=== PATIENT | female | born 1980 | race African-American/Black ===

== ENCOUNTER 2018-05-31 08:29 | Emergency (ER) | payer MEDICAID ==
[~2018-05-31] VITALS: Ht 170.2 cm; Wt 94.2 kg
[~2018-05-31 08:29] MED LIST: HYDR25TA6 PO; LISI5TAB7 PO
[2018-05-31 10:20] VITALS: BP 126/98
== END 2018-05-31 10:22 | disposition home or self-care (01) ==
LOC: ED 09:20
DX: J01.00 Acute maxillary sinusitis, unspecified (principal); R51 Headache; J30.2 Other seasonal allergic rhinitis; L03.211 Cellulitis of face; I10 Essential (primary) hypertension; J45.909 Unspecified asthma, uncomplicated; Z87.891 Personal history of nicotine dependence; Z88.8 Allergy status to other drugs, medicaments and biological substances
CPT/HCPCS: 99283

== ENCOUNTER 2018-10-24 08:59 | Emergency (ER) | payer MEDICAID ==
[~2018-10-24] VITALS: Ht 170.2 cm; Wt 89.0 kg
--- NOTE | 2018-10-24 09:33 | NUR ---
Pt to 11 from lobby
--- NOTE | 2018-10-24 09:45 | NUR ---
First contact with patient: Patient resting in gurney with family member at bedside, plan of care discussed with patient and questions answered. Ultrasound being performed at bedside at this time. Call bernard placed within reach with instruction for use.
--- NOTE | 2018-10-24 09:47 | NUR ---
Report to KAI Lindo.
[2018-10-24 10:28] LABS: BASOPHILS # (AUTO) 0.04 x10^3/uL (0-0.1); BASOPHILS % (AUTO) 1 % (0-1); EOSINOPHILS # (AUTO) 0.47 x10^3/uL (0-0.4); EOSINOPHILS % (AUTO) 11 % (1-7); LYMPHOCYTES # (AUTO) 1.95 x10^3/uL (1-3.4); LYMPHOCYTES % (AUTO) 46 % (22-44); MD NO; MEAN CORPUSCULAR HEMOGLOBIN 27.8 pg (27.0-34.8); MEAN CORPUSCULAR VOLUME 84.4 fL (80-100); MEAN PLATELET VOLUME 9.6 fL (7.4-10.4); MONOCYTES # (AUTO) 0.16 x10^3/uL (0.2-0.8); MONOCYTES % (AUTO) 4 % (2-9); NEUTROPHILS # (AUTO) 1.67 x10^3/uL (1.8-6.8); NEUTROPHILS % (AUTO) 39 % (42-75); PLATELET COUNT 261 x10^3/uL (130-400); RED CELL DISTRIBUTION WIDTH 13.9 % (9.6-15.2)
[2018-10-24] MEDS ORDERED: HYDROmorphone 1 MG/ML, 1ML ONE (10:42)
[2018-10-24 10:44] LABS: CHLORIDE 109 mmol/L (98-107)
[2018-10-24] MEDS ORDERED: HYDROcodone/APAP 5/325 TABLET ONE (10:46)
[2018-10-24 10:48] LABS: ALBUMIN 3.5 g/dL (3.4-5.0); ANION GAP 5 mmol/L (5-15)
[2018-10-24 10:52] LABS: MICROSCOPIC AUTO
[2018-10-24 10:54] LABS: BILIRUBIN,TOTAL 0.6 mg/dL (0.2-1.0); TOTAL PROTEIN 7.1 g/dL (6.4-8.2)
[2018-10-24 10:55] VITALS: BP 119/80
[2018-10-24 10:55] LABS: ALANINE AMINOTRANSFERASE 11 U/L (12-78); ALKALINE PHOSPHATASE 39 U/L (45-117)
--- NOTE | 2018-10-24 10:58 | NUR ---
PT CONNECTED TO MONITORS. 2LNC O2 APPLIED FOR RA SAT 84%. PT NOW SAT >95%. MEDICATED PER OCT. PT RESTING WTIH FAMILY AT BEDSIDE. VSS. NO NEEDS AT THIS TIME.
[2018-10-24] MEDS ORDERED: HYDROmorphone 1 MG/ML, 1ML IM ONE (11:00)
[2018-10-24] MEDS ORDERED: MAALOX/HYOSCYAMINE/LIDOCAINE 45 ML BTL PO ONE (11:00)
[2018-10-24] MEDS ORDERED: HYDROcodone/APAP 5/325 TABLET PO ONE (11:00)
[2018-10-24 11:01] LABS: CULTURE INDICATED? YES
[2018-10-24] MEDS ORDERED: MAALOX/HYOSCYAMINE/LIDOCAINE 45 ML BTL ONE (11:02)
[2018-10-24] MEDS ORDERED: AMLO10TA8 PO (11:21)
[2018-10-24] MEDS ORDERED: ALBUTEROL INHALER (11:21)
--- NOTE | 2018-10-24 11:29 | NUR ---
all resutls back at this time. chart up for recheck.
== END 2018-10-24 11:48 | disposition home or self-care (01) ==
LOC: ED 10:37
DX: N30.00 Acute cystitis without hematuria (principal); K29.00 Acute gastritis without bleeding; M54.41 Lumbago with sciatica, right side; I10 Essential (primary) hypertension; J45.909 Unspecified asthma, uncomplicated; Z87.891 Personal history of nicotine dependence
CPT/HCPCS: 36415; 76700; 80053; 81001; 83690; 85025; 86677; 87086; 99284; J7512

== ENCOUNTER 2019-02-09 23:19 | Emergency (ER) | payer MEDICAID ==
[~2019-02-09] VITALS: Ht 170.2 cm; Wt 90.4 kg
[~2019-02-09 23:19] MED LIST changes: +ALBUTEROL INHALER; +AMLO10TA8 PO
[2019-02-09 23:21] VITALS: BP 146/93
--- NOTE | 2019-02-09 23:42 | NUR ---
PT AMBULATES FROM TRIAGE TO ROOM WITH STEADY GAIT.
[2019-02-09 23:51] LABS: HCG UR SG 1.027 (1.003-1.030)
[2019-02-09] MEDS ORDERED: PHENAZOPYRIDINE 200 MG TABLET ONE (23:58)
[2019-02-10] MEDS ORDERED: PHENAZOPYRIDINE 200 MG TABLET PO ONE
[2019-02-10 00:01] LABS: CULTURE INDICATED? YES; MICROSCOPIC INDICATED
[2019-02-10] MEDS ORDERED: CEFDINIR 300 MG CAPSULE ONE (00:26)
[2019-02-10] MEDS ORDERED: CEFDINIR 300 MG CAPSULE PO ONE (00:30)
== END 2019-02-10 00:45 | disposition home or self-care (01) ==
LOC: ED 02-10 00:32
DX: N39.0 Urinary tract infection, site not specified (principal); I10 Essential (primary) hypertension; J45.909 Unspecified asthma, uncomplicated; Z87.891 Personal history of nicotine dependence; Z76.0 Encounter for issue of repeat prescription
CPT/HCPCS: 81001; 81025; 87086; 99283

== ENCOUNTER 2019-04-01 14:25 | Emergency (ER) | payer MEDICAID ==
[~2019-04-01] VITALS: Ht 170.2 cm; Wt 87.9 kg
[2019-04-01 14:31] VITALS: BP 148/97
== END 2019-04-01 17:22 | disposition home or self-care (01) ==
LOC: ED 15:20
DX: T78.3XXA Angioneurotic edema, initial encounter (principal)
CPT/HCPCS: 96372; 99283; J1200; J7512

== ENCOUNTER 2019-06-11 06:56 | Emergency (ER) | payer MEDICAID ==
[~2019-06-11] VITALS: Ht 170.2 cm; Wt 86.0 kg
[2019-06-11 07:03] VITALS: BP 147/96
[2019-06-11] MEDS ORDERED: ACETAMINOPHEN 325 MG TABLET ONE (07:24)
[2019-06-11] MEDS ORDERED: IBUPROFEN 600 MG TABLET ONE (07:25)
[2019-06-11] MEDS ORDERED: IBUPROFEN 600 MG TABLET PO ONE (07:30)
[2019-06-11] MEDS ORDERED: ACETAMINOPHEN 325 MG TABLET PO ONE (07:30)
== END 2019-06-11 07:41 | disposition home or self-care (01) ==
LOC: ED 07:20
DX: J06.9 Acute upper respiratory infection, unspecified (principal); L04.0 Acute lymphadenitis of face, head and neck; I10 Essential (primary) hypertension; Z90.49 Acquired absence of other specified parts of digestive tract; Z88.5 Allergy status to narcotic agent
CPT/HCPCS: 99283

== ENCOUNTER 2019-07-03 10:41 | Emergency (ER) | payer MEDICAID ==
[~2019-07-03] VITALS: Ht 170.2 cm; Wt 83.6 kg
--- NOTE | 2019-07-03 11:38 | NUR ---
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 MARIE
--- NOTE | 2019-07-03 11:50 | NUR ---
38Y F COMES IN W/ C/O HX OF RESOLVED N/V/D BUT STILL ABD PAIN, DEC APPETITE, AND FOOD NOT HAVING TASTE. PT IS CONNECTED TO MONITORING CALL LIGHT IN REACH VSS. MARIE
[2019-07-03 11:55] LABS: BASOPHILS # (AUTO) 0.03 x10^3/uL (0-0.1); BASOPHILS % (AUTO) 1 % (0-1); EOSINOPHILS % (AUTO) 13 % (1-7); LYMPHOCYTES # (AUTO) 1.92 x10^3/uL (1-3.4); LYMPHOCYTES % (AUTO) 49 % (22-44); MD NO; MEAN CORPUSCULAR HEMOGLOBIN 27.5 pg (27.0-34.8); MEAN CORPUSCULAR HGB CONC 31.8 g/dL (32.4-35.8); MEAN CORPUSCULAR VOLUME 86.6 fL (80-100); MEAN PLATELET VOLUME 10.1 fL (7.4-10.4); MONOCYTES # (AUTO) 0.18 x10^3/uL (0.2-0.8); MONOCYTES % (AUTO) 5 % (2-9); NEUTROPHILS # (AUTO) 1.27 x10^3/uL (1.8-6.8); NEUTROPHILS % (AUTO) 33 % (42-75); PLATELET COUNT 227 x10^3/uL (130-400); RED BLOOD COUNT 4.23 x10^6/uL (3.82-5.3); RED CELL DISTRIBUTION WIDTH 14.9 % (9.6-15.2)
--- NOTE | 2019-07-03 11:56 | NUR ---
MD AT BEDSIDE TO ASSESS PT
[2019-07-03 12:20] LABS: ALBUMIN 3.8 g/dL (3.4-5.0); ANION GAP 6 mmol/L (5-15); CALCIUM 9.4 mg/dL (8.5-10.1); CHLORIDE 107 mmol/L (98-107)
[2019-07-03 12:21] LABS: CREATININE 1.01 mg/dL (0.55-1.02)
--- NOTE | 2019-07-03 12:44 | NUR ---
urine sent to lab
[2019-07-03 12:48] VITALS: BP 106/73
[2019-07-03 12:56] LABS: MICROSCOPIC INDICATED
[2019-07-03 13:06] LABS: CULTURE INDICATED? YES
--- NOTE | 2019-07-03 13:26 | NUR ---
ALL RESULTS BACK AT THIS TIME CHART UP FOR RECHECK AWAITING FURTHER ORDERS
== END 2019-07-03 13:58 | disposition home or self-care (01) ==
LOC: ED 13:46
DX: N30.00 Acute cystitis without hematuria (principal); I10 Essential (primary) hypertension; R11.2 Nausea with vomiting, unspecified; R19.7 Diarrhea, unspecified; R53.1 Weakness
CPT/HCPCS: 36415; 80048; 81001; 82040; 85025; 87086; 99283

== ENCOUNTER 2019-08-05 22:33 | Emergency (ER) | payer MEDICAID ==
[~2019-08-05] VITALS: Ht 170.2 cm; Wt 86.2 kg
--- NOTE | 2019-08-05 22:59 | NUR ---
RT AT BEDSIDE
[2019-08-05] MEDS ORDERED: ALBUTEROL/IPRATROPIUM 2.5MG/0.5MG, 3 ML NPPB ONE (23:00)
[2019-08-05 23:12] LABS: BASOPHILS # (AUTO) 0.05 x10^3/uL (0-0.1); BASOPHILS % (AUTO) 1 % (0-1); EOSINOPHILS % (AUTO) 13 % (1-7); LYMPHOCYTES # (AUTO) 1.74 x10^3/uL (1-3.4); LYMPHOCYTES % (AUTO) 37 % (22-44); MD NO; MEAN CORPUSCULAR HEMOGLOBIN 27.5 pg (27.0-34.8); MEAN CORPUSCULAR HGB CONC 32.3 g/dL (32.4-35.8); MEAN CORPUSCULAR VOLUME 85.1 fL (80-100); MONOCYTES # (AUTO) 0.17 x10^3/uL (0.2-0.8); MONOCYTES % (AUTO) 4 % (2-9); NEUTROPHILS # (AUTO) 2.09 x10^3/uL (1.8-6.8); NEUTROPHILS % (AUTO) 45 % (42-75); PLATELET COUNT 244 x10^3/uL (130-400); RED BLOOD COUNT 3.85 x10^6/uL (3.82-5.3); RED CELL DISTRIBUTION WIDTH 15.7 % (9.6-15.2)
[2019-08-05 23:22] LABS: ALANINE AMINOTRANSFERASE 11 U/L (12-78); ALBUMIN 3.6 g/dL (3.4-5.0); ANION GAP 7 mmol/L (5-15); CHLORIDE 107 mmol/L (98-107)
[2019-08-05 23:26] LABS: ALKALINE PHOSPHATASE 37 U/L (45-117); TOTAL PROTEIN 7.3 g/dL (6.4-8.2); TROPONIN I < 0.015 ng/mL (0.000-0.045)
--- NOTE | 2019-08-05 23:36 | NUR ---
GLUCOSE OF 456, MD UPDATED PT GIVEN ORANGE JUICE PER MD.
[2019-08-06 00:28] VITALS: BP 100/68
== END 2019-08-06 00:52 | disposition home or self-care (01) ==
LOC: ED 22:49
DX: J45.31 Mild persistent asthma with (acute) exacerbation (principal); R07.89 Other chest pain; R73.09 Other abnormal glucose; I10 Essential (primary) hypertension; Z90.49 Acquired absence of other specified parts of digestive tract
CPT/HCPCS: 36415; 71046; 80053; 82962; 83880; 84484; 85025; 93005; 99284; J7620

== ENCOUNTER 2019-08-19 13:59 | Emergency (ER) | payer MEDICAID ==
[~2019-08-19] VITALS: Ht 170.2 cm; Wt 80.4 kg
--- NOTE | 2019-08-19 14:40 | NUR ---
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
--- NOTE | 2019-08-19 15:39 | NUR ---
REPORT FROM AVA QUINN
[2019-08-19] MEDS ORDERED: ALBUTEROL/IPRATROPIUM 2.5MG/0.5MG, 3 ML ONE (15:52)
--- NOTE | 2019-08-19 15:59 | NUR ---
MEDS PER OCT. 98% RA, STS FEELS BETTER AFTER NEB, CXR PENDING.
[2019-08-19] MEDS ORDERED: ALBUTEROL/IPRATROPIUM 2.5MG/0.5MG, 3 ML NPPB ONE (16:00)
[2019-08-19 16:59] VITALS: BP 102/71
== END 2019-08-19 17:08 | disposition home or self-care (01) ==
LOC: ED 15:29
DX: J45.31 Mild persistent asthma with (acute) exacerbation (principal); I10 Essential (primary) hypertension; Z90.49 Acquired absence of other specified parts of digestive tract; Z87.440 Personal history of urinary (tract) infections
CPT/HCPCS: 71046; 94640; 99283; J7512; J7620